=== PATIENT | female | born 1955 | race Caucasian/White ===

== ENCOUNTER 2024-05-30 11:04 | Emergency (ER) | payer BC, OTHER ==
[~2024-05-30] VITALS: Ht 160 cm; Wt 77.1 kg
[2024-05-30 11:20] VITALS: BP_SYST 163; PULSE 87; RESP 16; TEMP 97.8; O2SAT 93
[2024-05-30 13:18] VITALS: TEMP 98.2
[2024-05-30] MEDS ORDERED: IBUP-1969 PO (13:43)
[2024-05-30] MEDS ORDERED: TRAM50TA2 PO (13:43)
[2024-05-30 13:50] VITALS: BP_SYST 133; PULSE 60; RESP 18; O2SAT 90
== END 2024-05-30 13:50 | disposition home or self-care (01) ==
LOC: SED 11:04
DX: S79.821A Other specified injuries of right thigh, initial encounter (principal); R03.0 Elevated blood-pressure reading, without diagnosis of hypertension; Z88.4 Allergy status to anesthetic agent; X58.XXXA Exposure to other specified factors, initial encounter; Y93.89 Activity, other specified; Y92.89 Other specified places as the place of occurrence of the external cause; Y99.8 Other external cause status
CPT/HCPCS: 73552; 93971; 99284